=== PATIENT | female | born 1980 | race Caucasian/White ===

== ENCOUNTER 2019-01-07 21:08 | Emergency (ER) | payer SELFPAY ==
[~2019-01-07] VITALS: Ht 167.6 cm; Wt 52.2 kg
[2019-01-07 21:22] VITALS: BP 115/65
[2019-01-07] MEDS ORDERED: HYDROCODONE/APAP 10/325MG 1 EA TABLET PO ONE (23:00)
[2019-01-07] MEDS ORDERED: HYDROCODONE/APAP 10/325MG 1 EA TABLET ONE (23:08)
== END 2019-01-07 23:31 | disposition home or self-care (01) ==
LOC: ER 21:14
DX: G89.18 Other acute postprocedural pain (principal); Z88.1 Allergy status to other antibiotic agents
CPT/HCPCS: A6402; A6403